=== PATIENT | male | born 1950 | race Caucasian/White ===

== ENCOUNTER 2018-07-09 20:17 | Emergency (ER) | payer OTHER ==
--- NOTE | 2018-07-09 20:39 | EDPHY ---
H & P Stated Complaint: BLOODY URINE, FATIGUE Time Seen by Provider: 07/09/18 20:39 HPI/ROS: HPI CHIEF COMPLAINT: Blood in urine. HISTORY OF PRESENT ILLNESS: The patient is 68-year-old male, he is otherwise healthy does have hypertension hyperlipidemia, visiting from [facility], visiting his son here for the holidays. He presents emergency room stating that he approximately 70 minutes ago he urinated notice blood in his urine. No back pain, no abdominal pain, no dysuria, no fever, no complaints other than seeing blood in his urine. He states he has never had this before. Past Medical History: Hypertension, hyperlipidemia Past Surgical History: Lasix Social History: Drinks alcohol, from [place] Family History: Noncontributory ROS REVIEW OF SYSTEMS: 10 Systems were reviewed and negative with the exception of the elements mentioned in the history of present illness. Exam Constitutional nontoxic, triage nursing summary reviewed, vital signs reviewed , awake/alert. Eyes normal conjunctivae and sclera, EOMI, PERRLA. HENT normal inspection, atraumatic, moist mucus membranes, no epistaxis, neck supple/ no meningismus, no raccoon eyes. Respiratory clear to auscultation bilaterally, normal breath sounds, no respiratory distress, no wheezing. Cardiovascular rate normal, regular rhythm, no murmur, no edema, distal pulses normal. Gastrointestinal no abdominal bruit on exam, soft, non-tender, no rebound, no guarding, normal bowel sounds, no distension, no pulsatile mass. Genitourinary no CVA tenderness. Musculoskeletal no midline vertebral tenderness, full range of motion, no calf swelling, no tenderness of extremities, no meningismus, good pulses, neurovascularly intact. Skin pink, warm, & dry, no rash, skin atraumatic. Neurologic awake, alert and oriented x 3, AAOx3, moves all 4 extremities equally, motor intact, sensory intact, CN II-XII intact, normal cerebellar, normal vision, normal speech. Psychiatric normal mood/affect. Heme/Lymph/Immune no lymphadenopathy. Differential Diagnosis: Includes but is not limited to in a particular order, UTI, cystitis, prostate bleeding, kidney stone Medical Decision Making: Plan for this patient check UA. Re-evaluate. Re-evaluation: Patient's urinalysis reviewed does shows leukocyte Estrace, white blood cells and red blood cells consistent with a cystitis. Here in emergency room the patient appears well nontoxic in no acute distress. Patient is afebrile. Does not have flank pain or back pain does not have abdominal pain does not appear acutely ill. I believe we can treat this with oral antibiotics. 1st dose of Keflex given in the emergency room. I explained to the patient she he should stay well-hydrated drink lots of fluids. Also we discussed about return precautions he understands return emergency room if develops high fever, vomiting, not doing well, worsening urinary symptoms. [place] recommend he stays well hydrated. He is due to go back to [place] on Return precautions discussed with him and son at bedside Keflex as prescribed Urine culture sent Return if worse he understands. Source: Patient - Personal History Current Tetanus Diphtheria and Acellular Pertussis (TDAP): Yes - Medical/Surgical History Hx Asthma: No Hx Chronic Respiratory Disease: No Hx Diabetes: No Hx Cardiac Disease: No Hx Renal Disease: No Hx Cirrhosis: No Hx Alcoholism: No Hx HIV/AIDS: No Hx Splenectomy or Spleen Trauma: No Other PMH: HTN, HIGH CHOLESTEROL, MACULAR DEGENERATION CORRECTED. - Social History Smoking Status: Former smoker Constitutional: Initial Vital Signs Temperature (C) 37.1 C 07/09/18 20:28 Heart Rate 101 H 07/09/18 20:28 Respiratory Rate 18 07/09/18 20:28 Blood Pressure 124/80 H 07/09/18 20:28 O2 Sat (%) 90 L 07/09/18 20:28 O2 Delivery Mode Room Air Allergies/Adverse Reactions: No Known Allergies Allergy (Unverified 07/09/18 20:27) Home Medications: Medication Instructions Recorded Blood Pressure Medication 07/09/18 Cephalexin [Keflex] 500 mg PO Q6H #28 cap 07/09/18 Lipitor 07/09/18 Phenazopyridine HCl [Pyridium] 200 mg PO TID #15 tab 07/09/18 Medical Decision Making - Data Points Laboratory Results: 07/09/18 20:40 Urine Color SHIREEN Urine Appearance HAZY Urine pH 5.0 (5.0-7.5) Ur Specific [place] 1.025 (1.002-1.030) Urine Protein 1+ H (NEGATIVE) Urine Ketones TRACE H (NEGATIVE) Urine Blood 1+ H (NEGATIVE) Urine Nitrate NEGATIVE (NEGATIVE) Urine Bilirubin NEGATIVE (NEGATIVE) Urine Urobilinogen NEGATIVE EU EU (0.2-1.0) Ur Leukocyte Esterase TRACE H (NEGATIVE) Urine RBC 50-182 /hpf H /hpf (0-3) Urine WBC 10-15 /hpf H /hpf (0-3) Ur Epithelial Cells NONE SEEN /lpf /lpf (NONE-1+) Urine Mucus 3+ /lpf H /lpf (NONE-1+) Urine Glucose NEGATIVE (NEGATIVE) Departure - Departure Disposition: Home, Routine, Self-Care Clinical Impression: Urinary tract infection Condition: Good Instructions: Urinary Tract Infection in Men (ED) Additional Instructions: 1. Drink lots of fluids stay well-hydrated 2. Follow up with your primary care doctor 3. Return emergency room if he develops high fever, vomiting, worsening symptoms. 4. Antibiotics as prescribed Referrals: ASHLY HUSAIN [Other] - As per Instructions Prescriptions: Cephalexin [Keflex] 500 mg PO Q6H #28 cap Phenazopyridine HCl [Pyridium] 200 mg PO TID #15 tab
[2018-07-09 20:45] VITALS: BP 124/69
[2018-07-09] MEDS ORDERED: CEPHALEXIN 500 MG CAP PO ONE (21:06)
[2018-07-09] MEDS ORDERED: CEPHALEXIN 500MG PREPACK#4 BTL TAKEHOME ONE (21:06)
[2018-07-09] MEDS ORDERED: PHENAZOPYRIDINE HCL 200 MG TAB PO ONE (21:09)
== END 2018-07-09 21:43 | disposition home or self-care (01) ==
DX: N39.0 Urinary tract infection, site not specified (principal); I10 Essential (primary) hypertension; E78.5 Hyperlipidemia, unspecified